=== PATIENT | male | born 1995 | race American Indian/Alaskan Native ===

== ENCOUNTER 2017-11-02 06:04 | Day surgery (SDC) | payer OTHER ==
[~2017-11-02 06:04] MED LIST: Dextrose 5%-0.45% NaCl 1,000 ML IV SCH; Sodium Chloride 0.9% 10 ML Syringe FLUSH PRN
[2017-11-02] MEDS ORDERED: Midazolam 1 MG/ML 2 ML SDV IV ONE ×3 (06:05→07:25)
[2017-11-02] MEDS ORDERED: fentaNYL 100 MCG/2 ML SDV IV ONE ×3 (06:05→07:24)
[2017-11-02] MEDS ORDERED: Midazolam 1 MG/ML 2 ML SDV ONE (06:19)
[2017-11-02] MEDS ORDERED: fentaNYL 100 MCG/2 ML SDV ONE (06:19)
--- NOTE | 2017-11-02 07:57 | OR ---
DATE: 11/02/2017 PROCEDURE: Esophagogastroduodenoscopy. INSTRUMENT USED: GIF-H180 Olympus video panendoscope. PREMEDICATIONS: No oral topical anesthesia used. Fentanyl 100 mcg intravenous, Versed 2 mg intravenous. The procedure was done under pulse oximetry, BP recording, and monitor tech. INDICATION: The patient with persistent high dysphagia unexplained and not responsive to medical measures. DESCRIPTION OF PROCEDURE: Esophagogastroduodenoscopy is performed for detection of any active erosive lesions, malignancy also under consideration, esophageal dilatations if indicated, endoscopic hemostasis therapy if needed. The scope was passed with ease. Adequate visualization of the esophagus was made from proximal to distal areas. No upper esophageal lesions identified. No distal esophageal stricture. No uphill or downhill esophageal viruses. No [place]-Lares tear. No evidence of erosive esophagitis by [place] criteria. No esophageal polyp or tumor mass identified. Z-line was seen at around 40 cm distal to the oral verge, configuration consistent with grade 1 by Zapp classification. No proximal gastric varices noted. Gastric fundus examination by retroflexion showed no polypoid lesions. No gastric ulcer, malignant mass, or vascular ectasia identified. Duodenal bulb showed no ulcer. Visualized second part of the duodenum was unremarkable. No bleeding was noted from any of the visualized areas at the completion of examination. Photographs were taken of the duodenal bulb, gastric antrum, fundus, and distal esophagus. IMPRESSION: Normal study. The patient tolerated the procedure well. [facility] /[id number]
== END 2017-11-02 09:32 | disposition home or self-care (01) ==
LOC: DL.ENDO 06:04
PROVIDERS: ATTEND Internal Medicine Gastroenterology
DX: R10.13 Epigastric pain (principal); F41.1 Generalized anxiety disorder
CPT/HCPCS: 43235; J2250; J3010; J7042; J7050